=== PATIENT | male | born 1985 | race Caucasian/White ===

== ENCOUNTER 2023-04-11 15:44 | Outpatient (CLI) | payer BC ==
[~2023-04-11] VITALS: Ht 170.2 cm; Wt 143.2 kg
[2023-04-11] MEDS ORDERED: FECAL MICROBIOTA, LIVE-JSLM 150ML BAG (REBYOTA) RC ONE (16:05)
== END 2023-04-11 17:00 | disposition home or self-care (01) ==
LOC: M OPCLI4PR 15:44
PROVIDERS: ATTEND Internal Medicine Gastroenterology
DX: A04.71 Enterocolitis due to Clostridium difficile, recurrent (principal)